=== PATIENT | female | born 1995 ===

== ENCOUNTER 2016-12-07 22:33 | Emergency (ER) | payer MEDICAID ==
[~2016-12-07] VITALS: Ht 167.6 cm; Wt 98.0 kg
[2016-12-07 22:58] VITALS: Ht 167.6 cm; Wt 98.0 kg
--- NOTE | 2016-12-07 23:16 | ERA ---
ER Documentation Chief Complaint Date/Time DATE: 12/07/16 TIME: 23:16 Chief Complaint intentional ingestion HPI The patient is a 21-year-old female, presenting to the ER because she ingested unknown amount of medication at unknown time. The mother left the patient around 3 PM, came back around 9:30 PM when she saw the patient somewhat confused and not herself, therefore she brought the patient to the ER for further evaluation. She has not been herself for the last week, depressed and angry mood. She previously ingested medication Zoloft in 2013 to kill herself. She is somnolent but arousable, did not want to provide much history. She does not smoke nor drink or use illicit drugs according to the mother. Past medical history: Depression Past surgical history: None ROS All systems reviewed and are negative except as per history of present illness. Medications Home Meds Unable to Obtain Active Prescriptions or Reported Meds Allergies Allergies: Coded Allergies: No Known Allergy (Unverified , 12/07/16) Physical Exam Vitals Vital Signs Date Time Temp Pulse Resp B/P Pulse Ox O2 Delivery O2 Flow Rate FiO2 12/07/16 22:58 98.9 95 18 139/77 99 12/07/16 22:40 99 16 104/92 100 Room Air Physical Exam Const: No acute distress. Head: Atraumatic. Eyes: Normal Conjunctiva. ENT: Normal External Ears, Nose and Mouth. Neck: Full range of motion. No meningismus. Resp: Clear to auscultation bilaterally. Cardio: Regular rate and rhythm. Abd: Soft, non distended, normal bowel sounds, non tender. Skin: No petechiae or rashes. Back: No midline or flank tenderness. Ext: No cyanosis, or edema. Neur: Awake and alert. No focal deficit Psych: Depressed Result Diagram: 12/07/16 2323 12/07/16 2358 Results 24 hrs Laboratory Tests Test 12/07/16 23:23 12/07/16 23:58 White Blood Count 10.110^3/ul Red Blood Count 4.3310^6/ul Hemoglobin 12.4g/dl Hematocrit 38.6% Mean Corpuscular Volume 89.1fl Mean Corpuscular Hemoglobin 28.6pg Mean Corpuscular Hemoglobin Concent 32.1g/dl Red Cell Distribution Width 12.9% Platelet Count 63224^3/UL Mean Platelet Volume 12.1fl Neutrophils % 65.0% Lymphocytes % 24.4% Monocytes % 9.3% Eosinophils % 0.7% Basophils % 0.2% Nucleated Red Blood Cells % 0.0/100WBC Neutrophils # 6.610^3/ul Lymphocytes # 2.510^3/ul Monocytes # 0.910^3/ul Eosinophils # 0.110^3/ul Basophils # 0.010^3/ul Nucleated Red Blood Cells # 0.010^3/ul Urine Color YELLOW Urine Clarity SLIGHTLY CLOUDY Urine pH 5.0 Urine Specific [place] 1.027 Urine Ketones NEGATIVEmg/dL Urine Nitrite NEGATIVEmg/dL Urine Bilirubin NEGATIVEmg/dL Urine Urobilinogen 1+mg/dL Urine Leukocyte Esterase NEGATIVELeu/ul Urine Microscopic RBC 0/HPF Urine Microscopic WBC 2/HPF Urine Squamous Epithelial Cells FEW/HPF Urine Mucus FEW/HPF Urine Hemoglobin NEGATIVEmg/dL Urine Glucose NEGATIVEmg/dL Urine Total Protein 2+mg/dl Sodium Level 141mmol/L Potassium Level 3.3mmol/L Chloride Level 103mmol/L Carbon Dioxide Level 27mmol/L Anion Gap 14 Blood Urea Nitrogen 12mg/dl Creatinine 0.80mg/dl Glucose Level 112mg/dl Calcium Level 9.4mg/dl Total Bilirubin 0.0mg/dl Direct Bilirubin 0.00mg/dl Indirect Bilirubin 0.0mg/dl Aspartate Amino Transf (AST/SGOT) 19IU/L Alanine Aminotransferase (ALT/SGPT) 26IU/L Alkaline Phosphatase 57IU/L Total Protein 7.7g/dl Albumin 4.3g/dl Globulin 3.40g/dl Albumin/Globulin Ratio 1.26 Serum HCG, Qualitative NEGATIVE Salicylates Level < 1.0mg/dl Urine Opiates Screen Negative Acetaminophen Level < 10.0ug/ml Urine Barbiturates Negative Urine Amphetamines Screen Negative Urine Benzodiazepines Screen Negative Urine Cocaine Screen Negative Urine Cannabinoids Negative Ethyl Alcohol Level < 10.0mg/dl Current Medications Medications (Trade) Dose Ordered Sig/Bennie Route PRN Reason Start Time Stop Time Status Last Admin Dose Admin Sodium Chloride (NS) 1,000 ml @ 1,000 mls/hr Q1H ONCE IV 12/07/16 23:30 12/08/16 00:29 DC 12/07/16 23:56 Ondansetron HCl (Zofran Inj) 4 mg ONCE STAT IV 12/07/16 23:23 12/07/16 23:29 DC 12/07/16 23:56 Potassium Chloride (Klor-Con 20) 40 meq ONCE ONCE PO 12/08/16 01:14 12/08/16 01:15 DC 12/08/16 01:39 Procedures/MDM EKG: Read by emergency physician Rate/Rhythm: Normal Sinus Rhythm 90 beats/min QRS, ST, T-waves: No ST elevation, no T inversion Impression: Normal EKG [place] [id number] Radiology Main Line: [phone] DIAGNOSTIC IMAGING REPORT Patient: GUILLE WEBER : 1995 Age: 21 Sex: F MR #: [id number] DOS: 12/07/16 2323 Ordering MD: JODY POST MD Location: E/R Room/Bed: PROCEDURE: XR Chest. CLINICAL INDICATION: Chest pain. Altered level of consciousness TECHNIQUE: Portable AP upright view of the chest was obtained. COMPARISON: None. FINDINGS: The cardiomediastinal silhouette is within normal limits. The lungs are clear. There is no evidence for pleural effusion, pneumothorax or pulmonary vascular congestion. The osseous structures are intact with no evidence for acute abnormality. RPTAT:HJJR IMPRESSION: No evidence for acute intrathoracic pathology. Physician Gia Date Time Electronically viewed and signed by Physician Gia on 12/08/2016 00:35 JR/ CC: JODY POST MD MEDICAL MAKING DECISION: The patient is a 21-year-old female, presenting with acute intentional overdose of unknown medication, acute hypokalemia. She was treated with 1 L normal saline for clinical dehydration, potassium chloride 40 mEq p.o. for acute hypokalemia with good response. She is resting comfortably Consultation: We discussed the patient with poison control who recommended to observe for over 12 hours The differential diagnoses considered include but are not limited to depression , decompensated psychiatric illness, mood disorder, bipolar. Departure Diagnosis: Primary Impression: Intentional drug overdose Additional Impression: Hypokalemia Condition: Stable Comments The patient's blood pressure was elevated (>120/80) but appears stable without evidence of hypertension emergency or urgency. The patient was counseled about the risks of hypertension and urged to pursue outpatient monitoring and therapy within a week with their primary care physician. The patient is signed out to Dr. Garrett at 6 AM pending on psychiatric evaluation JODY POST MD Dec 07, 2016 23:16
[2016-12-07] MEDS ORDERED: ONDANSETRON 4 MG INJ IV STA (23:23)
[2016-12-07] MEDS ORDERED: SOD CHLORIDE 0.9% 1,000 ML IV ONE (23:30)
[2016-12-08 00:15] LABS: BASOPHILS % 0.2 % (0.0-2.0); EOSINOPHILS # 0.1 10^3/ul (0.0-0.5); EOSINOPHILS % 0.7 % (0.0-7.0); HEMATOCRIT 38.6 % (37.0-47.0); HEMOGLOBIN 12.4 g/dl (12.0-16.0); LYMPHOCYTES # 2.5 10^3/ul (0.8-2.9); LYMPHOCYTES % 24.4 % (15.0-51.0); MEAN CORPUSCULAR HEMOGLOBIN 28.6 pg (29.0-33.0); MEAN CORPUSCULAR HGB CONC 32.1 g/dl (32.0-37.0); MEAN CORPUSCULAR VOLUME 89.1 fl (82.0-101.0); MEAN PLATELET VOLUME 12.1 fl (7.4-10.4); MONOCYTE # 0.9 10^3/ul (0.3-0.9); MONOCYTES % 9.3 % (0.0-11.0); NEUTROPHIL # 6.6 10^3/ul (1.6-7.5); PLATELET COUNT 302 10^3/UL (140-415); RED BLOOD COUNT 4.33 10^6/ul (4.20-5.40); RED CELL DISTRIBUTION WIDTH 12.9 % (11.5-14.5); WHITE BLOOD COUNT 10.1 10^3/ul (4.8-10.8)
[2016-12-08 00:35] LABS: ADD UMIC YES; ALANINE AMINOTRANSFERASE 26 IU/L (13-69); ALBUMIN 4.3 g/dl (3.3-4.9); ALBUMIN/GLOBULIN RATIO 1.26; ALKALINE PHOSPHATASE 57 IU/L (42-121); ANION GAP 14 (8-16); ASPARTATE AMINO TRANSFERASE 19 IU/L (15-46); BLOOD UREA NITROGEN 12 mg/dl (7-20); CALCIUM 9.4 mg/dl (8.4-10.2); CARBON DIOXIDE 27 mmol/L (21-31); CHLORIDE 103 mmol/L (97-110); GLUCOSE 112 mg/dl (70-220); POTASSIUM 3.3 mmol/L (3.5-5.1); SODIUM 141 mmol/L (135-144); TOTAL PROTEIN 7.7 g/dl (6.1-8.1); UR ASCORBIC ACID NEGATIVE (NEGATIVE); UR BILIRUBIN (Dip) NEGATIVE (NEGATIVE); UR BLOOD (Dip) NEGATIVE (NEGATIVE); UR CLARITY SLIGHTLY CLOUDY (CLEAR); UR COLOR YELLOW (YELLOW); UR GLUCOSE (Dip) NEGATIVE (NEGATIVE); UR KETONES (Dip) NEGATIVE (NEGATIVE); UR LEUKOCYTE ESTERASE (Dip) NEGATIVE Leu/ul (NEGATIVE); UR MUCUS FEW /HPF (NONE SEEN); UR NITRITE (Dip) NEGATIVE (NEGATIVE); UR RBC 0 /HPF (0-5); UR SPECIFIC GRAVITY (Dip) 1.027 (1.003-1.030); UR SQUAMOUS EPITHELIAL CELL FEW /HPF (FEW); UR TOTAL PROTEIN (Dip) 2+ mg/dl (NEGATIVE); UR UROBILINOGEN (Dip) 1+ mg/dL (NEGATIVE)
--- NOTE | 2016-12-08 00:36 | RADRPT ---
PROCEDURE: XR Chest. CLINICAL INDICATION: Chest pain. Altered level of consciousness TECHNIQUE: Portable AP upright view of the chest was obtained. COMPARISON: None. FINDINGS: The cardiomediastinal silhouette is within normal limits. The lungs are clear. There is no evidenc e for pleural effusion, pneumothorax or pulmonary vascular congestion. The osseous structures are i ntact with no evidence for acute abnormality. RPTAT:HJJR IMPRESSION: No evidence for acute intrathoracic pathology. Physician Gia Date Time Electronically viewed and signed by Gareth Cabral Physician on 12/08/2016 00:35 JR/
[2016-12-08] MEDS ORDERED: POTASSIUM CHLORIDE (SR) 20 MEQ TAB PO ONE (01:14)
[2016-12-08 01:22] LABS: ACETAMINOPHEN < 10.0 ug/ml (10.0-30.0); BARBITURATES Negative (NEGATIVE); BENZODIAZEPINES Negative (NEGATIVE); CANNABINOIDS Negative (NEGATIVE); COCAINE Negative (NEGATIVE); ETHANOL < 10.0 mg/dl; OPIATES Negative (NEGATIVE); SALICYLATE < 1.0 mg/dl (5.0-30.0)
[2016-12-08] MEDS ORDERED: SOD CHLORIDE 0.9% 1,000 ML IV STA (08:29)
--- NOTE | 2016-12-08 11:22 | PSY ---
Date/Time of Note Date/Time of Note DATE: 12/08/16 TIME: 11:17 Psychiatric Subjective Eval Consent Pt consented to telemedicine: Yes Subjective Evaluation Patient location: emergency Chief Complaint: intentional ingestion of unk amount lexapro and concerta @2029 ? Reason for consult: s/a History of present illness 21 yo unemployed female with hx depression BIB EMS after she ODd on her psych meds: Lexparo and Concerta. Pt was found by her mother obtunded Pt is uncooperative, guarded, says "I don't know" or just stares at the celling . She said she had priro SA by OD and was hospitalzied because "I didnt open up to my psychiatrist". She admits to feeling depressed and says she is not sure if she is glad to be alive. Rasta AH or Vh, denies HI. Past psychiatric history hx depression Hospitalization: yes Family History denies Medical history Problems Medical Problems: (1) Hypokalemia Status: Acute (2) Intentional drug overdose Status: Acute Allergies: Coded Allergies: No Known Allergy (Unverified , 12/07/16) Substance Abuse Substance use: No known substance abuse Social History Marital status: single Level of education: 11th grade DPA/Conservatorship: No Occupation/[facility]: unemployed Psychiatric Objective Eval Review of Systems: Review of Systems: Not Applicable Physical Examination: Physical Examination: Not Applicable Mental Status Examination: Appearance: Disheveled Eye Contact: Poor Psychomotor Activity: Slow Behavior: Guarded Speech: Monotone AFFECT: Depressed Mood: Depressed Though Process: Linear Thought Content: Normal Suicidal: Yes Homicidal: No On 72 hour hold: No Cognition: Alert Insight: Impared Judgement: Impared Laboratory Results Laboratory Tests Test 12/07/16 23:23 12/07/16 23:58 White Blood Count 10.110^3/ul Red Blood Count 4.3310^6/ul Hemoglobin 12.4g/dl Hematocrit 38.6% Mean Corpuscular Volume 89.1fl Mean Corpuscular Hemoglobin 28.6pg Mean Corpuscular Hemoglobin Concent 32.1g/dl Red Cell Distribution Width 12.9% Platelet Count 01312^3/UL Mean Platelet Volume 12.1fl Neutrophils % 65.0% Lymphocytes % 24.4% Monocytes % 9.3% Eosinophils % 0.7% Basophils % 0.2% Nucleated Red Blood Cells % 0.0/100WBC Neutrophils # 6.610^3/ul Lymphocytes # 2.510^3/ul Monocytes # 0.910^3/ul Eosinophils # 0.110^3/ul Basophils # 0.010^3/ul Nucleated Red Blood Cells # 0.010^3/ul Urine Color YELLOW Urine Clarity SLIGHTLY CLOUDY Urine pH 5.0 Urine Specific [place] 1.027 Urine Ketones NEGATIVEmg/dL Urine Nitrite NEGATIVEmg/dL Urine Bilirubin NEGATIVEmg/dL Urine Urobilinogen 1+mg/dL Urine Leukocyte Esterase NEGATIVELeu/ul Urine Microscopic RBC 0/HPF Urine Microscopic WBC 2/HPF Urine Squamous Epithelial Cells FEW/HPF Urine Mucus FEW/HPF Urine Hemoglobin NEGATIVEmg/dL Urine Glucose NEGATIVEmg/dL Urine Total Protein 2+mg/dl Sodium Level 141mmol/L Potassium Level 3.3mmol/L Chloride Level 103mmol/L Carbon Dioxide Level 27mmol/L Anion Gap 14 Blood Urea Nitrogen 12mg/dl Creatinine 0.80mg/dl Glucose Level 112mg/dl Calcium Level 9.4mg/dl Total Bilirubin 0.0mg/dl Direct Bilirubin 0.00mg/dl Indirect Bilirubin 0.0mg/dl Aspartate Amino Transf (AST/SGOT) 19IU/L Alanine Aminotransferase (ALT/SGPT) 26IU/L Alkaline Phosphatase 57IU/L Total Protein 7.7g/dl Albumin 4.3g/dl Globulin 3.40g/dl Albumin/Globulin Ratio 1.26 Serum HCG, Qualitative NEGATIVE Salicylates Level < 1.0mg/dl Urine Opiates Screen Negative Acetaminophen Level < 10.0ug/ml Urine Barbiturates Negative Urine Amphetamines Screen Negative Urine Benzodiazepines Screen Negative Urine Cocaine Screen Negative Urine Cannabinoids Negative Ethyl Alcohol Level < 10.0mg/dl Assessment and Plan Assessment/Diagnosis Hur[place] I: Major Depressive Disorder recurrent severe [place] II: defered Huron III: nad Huron IV: moderate Huron V: gaf 25 Recommendation/Plan Medication Management defer to inpt Psychotherapy defer to inpt Pt. Caregiver/Family Education n/a Follow-up/Disposition 5150 for dts; transfer to inpt psych then medically cleared 5150 Recommendation: FORD Lopez MD Dec 08, 2016 11:22
[2016-12-08 18:34] VITALS: TEMP 98.7
[2016-12-08 20:45] VITALS: BP 110/69; PULSE 102; RESP 16
== END 2016-12-08 21:11 ==
LOC: E/R 22:33
DX: T50.902A Poisoning by unspecified drugs, medicaments and biological substances, intentional self-harm, initial encounter (principal); R07.9 Chest pain, unspecified
CPT/HCPCS: 71010; 80053; 80306; 80307; 81001; 84703; 85025; 93005; 96374; J2405; J7030; P9612; Z7502; Z7610